=== PATIENT | male | born 1965 | race Caucasian/White ===

== ENCOUNTER 2021-07-13 15:48 | Emergency (ER) | payer BC, OTHER ==
[2021-07-13 15:59] VITALS: BP 175/108
[2021-07-13] MEDS ORDERED: Rocephin 1000 MG INJ IM ONE (16:02)
[2021-07-13] MEDS ORDERED: XYLOCAINE 1% HCL 20 ML MDV ONE (16:05)
[2021-07-13] MEDS ORDERED: Rocephin 1000 MG INJ ONE (16:05)
--- NOTE | 2021-07-13 16:05 | ERPHSYRPT ---
- History of Present Illness Time Seen by Provider: 07/13/21 16:03 Source: patient Exam Limitations: no limitations Patient Subjective Stated Complaint: Pt states "I noticed a spot on my belly and I wear a tool belt and it has been rubbing this all day." Triage Nursing Assessment: Pt presented alert and oriented X 3, skin pwd. Pt ambulates with anupright steady gait, ablet os epak in clear full sentences pt in no apparent respiratory distress. Physician History: Pt states "I noticed a spot on my belly and I wear a tool belt and it has been rubbing this all day." Patient initially developed a small boil on the right lower abdominal area while at work where he has to wear a tool belt that area was rubbing and then it turned into the boil and it opened up Timing/Duration: today Severity: mild Associated Symptoms: denies symptoms Allergies/Adverse Reactions: No Known Drug Allergies Allergy (Verified 07/13/21 15:59) Home Medications: Aspirin/Caffeine [Shari Back & Body Caplet] 1 each PO Q4-6HPRN PRN 09/28/13 [History] Calcium Carbonate [Tums] 200 mg PO UD PRN 09/28/13 [History] Hydrocodone Bit/Acetaminophen [Vicodin Es 7.5-750 mg Tablet] 1 tab PO Q6H PRN PRN 09/28/13 [History] Hx Tetanus, Diphtheria Vaccination/Date Given: Yes Hx Influenza Vaccination/Date Given: No Hx Pneumococcal Vaccination/Date Given: No Immunizations Up to Date: Yes Travel Risk - International Travel Have you traveled outside of the country in past 3 weeks: No - Coronavirus Screening Are you exhibiting any of the following symptoms?: No Close contact with a COVID-19 positive Pt in past 14-21 Days: No - Vaccine Status Have you recieved a Covid-19 vaccination: (one shot) - Review of Systems Constitutional: No Fever, No Chills Eyes: No Symptoms Ears, Nose, & Throat: No Symptoms Respiratory: No Cough, No Dyspnea Cardiac: No Chest Pain, No Edema, No Syncope Abdominal/Gastrointestinal: No Abdominal Pain, No Nausea, No Vomiting, No Diarrhea Genitourinary Symptoms: No Dysuria Musculoskeletal: No Back Pain, No Neck Pain Skin: Cellulitis (right lower abdomen), No Rash Neurological: No Dizziness, No Focal Weakness, No Sensory Changes Psychological: No Symptoms Endocrine: No Symptoms All Other Systems: Reviewed and Negative - Past Medical History Pertinent Past Medical History: Yes Neurological History: Migraines ENT History: No Pertinent History Cardiac History: No Pertinent History Respiratory History: No Pertinent History Endocrine Medical History: Other Musculoskeletal History: Arthritis GI Medical History: GERD, Hemorrhoids History: No Pertinent History Psycho-Social History: No Pertinent History Male Reproductive Disorders: No Pertinent History Other Medical History: Hep B - Past Surgical History Past Surgical History: Yes Neuro Surgical History: No Pertinent History Cardiac: No Pertinent History Respiratory: Other Gastrointestinal: No Pertinent History Genitourinary: No Pertinent History Musculoskeletal: Orthopedic Surgery Male Surgical History: Vasectomy Other Surgical History: gina ankle screws, thomas and screws on rt leg - Social History Smoking Status: Current every day smoker How long have you smoked: years Exposure to second hand smoke: Yes Drug Use: none Patient Lives Alone: No - Nursing Vital Signs Nursing Vital Signs: Initial Vital Signs Temperature 98.2 F 07/13/21 15:54 Pulse Rate 120 H 07/13/21 15:54 Respiratory Rate 20 07/13/21 15:54 Blood Pressure 175/108 07/13/21 15:54 O2 Sat by Pulse Oximetry 96 07/13/21 15:54 Pain Scale Pain Intensity 6 - Physical Exam General Appearance: no apparent distress, alert Eye Exam: PERRL/EOMI, eyes nml inspection Ears, Nose, Throat Exam: normal ENT inspection, TMs normal, pharynx normal, moist mucous membranes Neck Exam: normal inspection, non-tender, supple, full range of motion Respiratory Exam: normal breath sounds, lungs clear, No respiratory distress Cardiovascular Exam: regular rate/rhythm, normal heart sounds, normal peripheral pulses Gastrointestinal/Abdomen Exam: soft, normal bowel sounds, No tenderness, No mass Back Exam: normal inspection, normal range of motion, No CVA tenderness, No vertebral tenderness Extremity Exam: normal inspection, normal range of motion, pelvis stable Neurologic Exam: alert, oriented x 3, cooperative, normal mood/affect, nml cerebellar function, nml station & gait, sensation nml, No motor deficits Skin Exam: normal color, warm, dry, other (superficial open area with clear discharge, ), No rash Lymphatic Exam: No adenopathy SpO2: 96 - Course Nursing assessment & vital signs reviewed: Yes Ordered Tests: Active Orders 24 hr Category Date Time Status Wound Care STAT Care 07/13/21 16:01 Active Medication Summary Discontinued Medications Generic Name Dose Route Start Last Admin Trade Name Dougq PRN Reason Stop Dose Admin Ceftriaxone Sodium 1,000 mg 07/13/21 16:02 Rocephin 1000 Mg Inj IM 07/13/21 16:03 STAT ONE - Progress Progress: unchanged Counseled pt/family regarding: diagnosis, need for follow-up - Departure Departure Disposition: Home Clinical Impression: Abdominal wall cellulitis Condition: Stable Critical Care Time: No Referrals: NATHANIEL MERRITT MD [Primary Care Provider] - Instructions: Wound Infection, MRSA (DC) Additional Instructions: Discharge/Care Plan BRENDAN RAMIREZ was seen on 07/13/21 in the Emergency Room. The patient was counseled regarding Diagnosis,Lab results, Imaging studies, need for follow up and when to return to the Emergency Room. Prescriptions given: Discharge Note I have spoken with the patient and/or caregivers. I have explained the patient's condition, diagnosis and treatment plan based on the information available to me at this time. I have answered the patient's and/or caregiver's questions and addressed any concerns. The patient and/or caregivers have as good understanding of the patient's diagnosis, condition and treatment plan as can be expected at this point. The vital signs have been stable. The patient's condition is stable and appropriate for discharge from the emergency department. The patient will pursue further outpatient evaluation with the primary care physician or other designated or consulting physician as outlined in the discharge instructions. The patient and/or caregivers are agreeable to this plan of care and follow-up instructions have been explained in detail. The patient and/or caregivers have received these instruction. The patient/and or caregivers are aware that any significant change in condition or worsening of symptoms should prompt an immediate return to this or the closest emergency department or call 911. BRENDAN RAMIREZ was seen on 07/13/21 n the Emergency Room. At that time you were treated for an emergent condition, during your visit Laboratory, Radiology and/or other procedures may have been ordered. It is very important that you follow-up with your Primary Care Physician NATHANIEL MERRITT within the next 24- 48 hours to review your Emergency Room visit and the final results of testing that was ordered. Some test results such as Urine Cultures, Blood Cultures, and other cultures if ordered will not be finalized for 24-48 hours. If you do not have a Primary Care Provider please call the medical records department at [phone] to obtain a copy of your results or you may sign into our patient portal to obtain these results by visiting us @ [email or web address] and completing the following steps: 1. Click on the Patient Portal link 2. Click the Patient Self Enrollment Link to complete the enrollment form and entering your 3. Once the enrollment form is completed you will receive an email with a temporary ID and password at the email address you provided. 4. Next choose a user name and password. Your user name must be at least 4 characters long and your password must be at least 4 characters long. 5. Choose a security question from the list and provide your answer to the question. If you already have signed into the Health Portal you may access your Health Care Information 15/06 by the following steps: 1. Login to our website @ [email or web address] 2. Enter your original user name and password. FAQS The [facility] Health Portal is an online tool that contains your Lab Results, Radiology Reports, Visit History, Discharge Instructions and Health Summary Lab and Radiology Results will not be available for 72 hours on the portal. The Portal is a secure site, passwords are encryted and URLs are re-written so they cannot be copied and pasted. You and authorized family members are the only ones who can access your Portal. Also there is a timeout feature that protects your information if you leave the Portal page open. If you have technical difficulty please use the Contact Us link on the page this will allow you to submit any questions you have regarding the Portal or you may contact the Medical Record Department at [phone] ext [phone]. Prescriptions: Mupirocin [Bactroban OINTMENT] 1 gm TOP BID #30 cm Cephalexin Mh 500 mg [Keflex 500 mg] 500 mg PO Q6H #40 cap
[2021-07-13 16:43] VITALS: PULSE 107; O2SAT 98
== END 2021-07-13 16:43 | disposition home or self-care (01) ==
LOC: ED 15:48
DX: L03.311 Cellulitis of abdominal wall (principal)
CPT/HCPCS: 96372; 99283; J0696